=== PATIENT | female | born 1950 | race Caucasian/White ===

== ENCOUNTER 2017-08-18 18:03 | Emergency (ER) | payer SELFPAY ==
[~2017-08-18] VITALS: Ht 154.9 cm; Wt 63.3 kg
[2017-08-18 18:22] VITALS: BP 226/113; PULSE 75; RESP 16; TEMP 97.8; O2SAT 96
[2017-08-18] MEDS ORDERED: SYNT88TA PO (18:38)
[2017-08-18] MEDS ORDERED: LOSA50TA PO (18:38)
[2017-08-18] MEDS ORDERED: BP MED PO (18:38)
[2017-08-18] MEDS ORDERED: hydrALAZINE HCL 20 MG/ML VIAL IV PUSH ONE (18:45)
[2017-08-18 18:54] LABS: AUTOMATED NEUTROPHIL # 4.5 TH/MM3 (1.8-7.7); BASOPHIL % 0.5 % (0.0-2.0); EOSINOPHIL # 0.1 TH/MM3 (0-0.4); EOSINOPHIL % 1.1 % (0.0-4.0); HEMATOCRIT 44.2 % (35.0-46.0); HEMO FLAGS DIFF FINAL; LYMPH % 26.9 % (9.0-44.0); LYMPHOCYTE # 1.8 TH/MM3 (1.0-4.8); MEAN CELL VOLUME 85.6 FL (80.0-100.0); MEAN CORPUSCULAR HEMOGLOBIN 29.2 PG (27.0-34.0); MEAN CORPUSCULAR HGB CONC 34.1 % (32.0-36.0); MONO % 4.9 % (0.0-8.0); NEUT % 66.6 % (16.0-70.0); PLATELET COUNT 223 TH/MM3 (150-450); RED BLOOD COUNT 5.16 MIL/MM3 (4.00-5.30); RED CELL DISTRIBUTION WIDTH 11.9 % (11.6-17.2); WHITE BLOOD COUNT 6.7 TH/MM3 (4.0-11.0)
[2017-08-18 19:04] LABS: POTASSIUM 3.7 MEQ/L (3.5-5.1)
[2017-08-18 19:07] LABS: BICARBONATE 25.8 MEQ/L (21.0-32.0)
[2017-08-18 19:08] LABS: INTERNATIONAL NORMALIZED RATIO 0.9 RATIO; PROTHROMBIN TIME - PATIENT 10.3 SEC (9.8-11.6)
[2017-08-18 19:24] VITALS: BP 234/110; PULSE 103; RESP 22; O2SAT 99
--- NOTE | 2017-08-18 19:43 | PD ---
HPI Chief Complaint: Eye Problems/Injury Time Seen by Provider: 18:37 Travel History International Travel<30 days: No Contact w/Intl Traveler<30days: No Traveled to known affect area: No History of Present Illness HPI 67yo F with PMH of HTN here with c/o right sided eye pain and pain above the eye for 1 week. +Blurry vision in right eye. Denies any trauma, fever, chest pain, sob, n/v, abdominal pain, focal weakness or numbness. PFSH Past Medical History Diminished Hearing: No Hypertension: Yes Thyroid Disease: Yes Tetanus Vaccination: < 5 Years ?: Not Tubal Ligation: Yes Past Surgical History Hysterectomy: No Tonsillectomy: Yes Social History Alcohol Use: No Tobacco Use: Yes (SOC) Substance Use: No Allergies-Medications (Allergen,Severity, Reaction): Coded Allergies: No Known Allergies (Unverified , 08/18/17) Reported Meds & Prescriptions Reported Meds & Active Scripts Active Tylenol (Acetaminophen) 325 Mg Tab 325 Mg PO Q4H PRN Reported Losartan (Losartan Potassium) 50 Mg Tab 50 Mg PO DAILY Synthroid (Levothyroxine Sodium) 88 Mcg Tab 88 Mcg PO DAILY Review of Systems Except as stated in HPI: all other systems reviewed are Neg Physical Exam Narrative GENERAL: 67yo F in mild distress. SKIN: Focused skin assessment warm/dry. HEAD: Atraumatic. Normocephalic. EYES: Pupils equal and round at 3mm bilaterally. EOMI. Pain with eye movement in right. No erythema or edema. IOP 17 in right eye. ENT: Throat: Clear. NECK: Trachea midline. No JVD. CARDIOVASCULAR: Regular rate and rhythm. No murmur appreciated. RESPIRATORY: No accessory muscle use. Clear to auscultation. Breath sounds equal bilaterally. GASTROINTESTINAL: Abdomen soft, non-tender, nondistended. MUSCULOSKELETAL: No obvious deformities. No clubbing. No cyanosis. No edema. NEUROLOGICAL: Awake and alert. No obvious cranial nerve deficits. Motor grossly within normal limits. Normal speech. PSYCHIATRIC: Appropriate mood and affect; insight and judgment normal. Data Data Last Documented VS Vital Signs Date Time Temp Pulse Resp B/P (MAP) Pulse Ox O2 Delivery O2 Flow Rate FiO2 08/18/17 21:46 70 16 177/82 (113) 100 08/18/17 21:05 Room Air 08/18/17 18:[address] Brain W/O Iv Contrast(Rout) (08/18/17 ) Ct Facial Bones W Iv Contrast (08/18/17 ) Complete Blood Count With Diff (08/18/17 18:43) Basic Metabolic Panel (Bmp) (08/18/17 18:43) Westergren Sedimentation Rate (08/18/17 18:43) Prothrombin Time / Inr (Pt) (08/18/17 18:43) Act Partial Throm Time (Ptt) (08/18/17 18:43) Hydralazine Inj (Apresoline Inj) (08/18/17 18:45) Iohexol 350 Inj (Omnipaque 350 Inj) (08/18/17 19:47) Ketorolac Inj (Toradol Inj) (08/18/17 20:15) Proparacaine 0.5% Opth Soln (Alcaine 0.5 (08/18/17 20:45) Ed Poc Ultrasound (08/18/17 ) Ed Discharge Order (08/18/17 21:08) Labs Laboratory Tests Test 08/18/17 18:43 08/18/17 18:45 Erythrocyte Sedimentation Rate 13 mm/hr White Blood Count 6.7 TH/MM3 Red Blood Count 5.16 MIL/MM3 Hemoglobin 15.1 GM/DL Hematocrit 44.2 % Mean Corpuscular Volume 85.6 FL Mean Corpuscular Hemoglobin 29.2 PG Mean Corpuscular Hemoglobin Concent 34.1 % Red Cell Distribution Width 11.9 % Platelet Count 223 TH/MM3 Mean Platelet Volume 9.3 FL Neutrophils (%) (Auto) 66.6 % Lymphocytes (%) (Auto) 26.9 % Monocytes (%) (Auto) 4.9 % Eosinophils (%) (Auto) 1.1 % Basophils (%) (Auto) 0.5 % Neutrophils # (Auto) 4.5 TH/MM3 Lymphocytes # (Auto) 1.8 TH/MM3 Monocytes # (Auto) 0.3 TH/MM3 Eosinophils # (Auto) 0.1 TH/MM3 Basophils # (Auto) 0.0 TH/MM3 CBC Comment DIFF FINAL Differential Comment Prothrombin Time 10.3 SEC Prothromb Time International Ratio 0.9 RATIO Activated Partial Thromboplast Time 27.0 SEC Blood Urea Nitrogen 17 MG/DL Creatinine 0.85 MG/DL Random Glucose 103 MG/DL Calcium Level 9.1 MG/DL Sodium Level 139 MEQ/L Potassium Level 3.7 MEQ/L Chloride Level 107 MEQ/L Carbon Dioxide Level 25.8 MEQ/L Anion Gap 6 MEQ/L Estimat Glomerular Filtration Rate 66 ML/MIN [facility] Medical Decision Making Medical Screen Exam Complete: Yes Emergency Medical Condition: Yes Differential Diagnosis Sinus headache vs. hypertensive emergency vs. temporal arteritis vs. glucoma Narrative Course 67yo F with headache around right eye frontal and maxillary sinus region for 1 week. No signs of infection on exam but pt has pain with eye movement so ordered CT facial with contrast. Labs reviewed, no leukocytosis. ESR 13 so no temporal arteritis. BMP unremarkable. CT brain negative. Pt has no focal weakness or numbness. States vision is blurred and there is no region that is black or has no vision. CT facial negative. Pt given hydralazine and BP improved from 226/113 to 192/101. Creatinine is normal. Toradol given for headache with improvement of pain. Eye pain also improved after proparacaine. Visual acuity left eye 20/25, right eye 20/50, bilateral 20/25. Beside ocular ultrasounds of right eye unremarkable. Pt is to follow up with base filler operator and PMD. Return precautions given. Procedures Procedure Narrative Emergency department ocular ultrasound was performed with patient consent. Right eye: Linear probe was used in the transverse and sagittal views of the orbit without evidence of retinal detachment, vitreous hemorrhage, or lens dislocation. Optic nerve is not enlarged. Diagnosis Primary Impression: Headache Qualified Codes: R51 - Headache Additional Impressions: Elevated blood pressure reading Blurred vision, right eye Referrals: Maya Eddy MD call for appointment Blurred vision in right eye for 1 week. Patient Instructions: General Instructions Departure Forms: Tests/Procedures Additional Instructions: Please follow up with base filler operator in 1-2 days. Please follow up with your primary care physician regarding uncontrolled blood pressure. Please return to the ED if symptoms worsen. Med/Other Pt SpecificInfo: Prescription(s) given Scripts Acetaminophen (Tylenol) 325 Mg Tab 325 MG PO Q4H Y for PAIN SCALE 1 TO 4, #20 TAB 0 Refills Prov: Consuelo Lindquist 08/18/17 Disposition: 01 DISCHARGE HOME Condition: Stable Consuelo Lindquist DO Aug 18, 2017 19:43
[2017-08-18] MEDS ORDERED: IOHEXOL 350 MG/ML 10 ML VIAL (for RAD DIAG) IVCONTRAST ONE (19:47)
--- NOTE | 2017-08-18 19:56 | RADRPT ---
EXAM DATE/TIME: 08/18/2017 19:27 [facility] COMPARISON: No previous studies available for comparison. INDICATIONS : Cephalgia. RADIATION DOSE: 57.36 CTDIvol (mGy) MEDICAL HISTORY : Hypertension. SURGICAL HISTORY : None. ENCOUNTER: Initial ACUITY: 1 day PAIN SCALE: 6/10 LOCATION: Bilateral cranial TECHNIQUE: Multiple contiguous axial images were obtained of the head. Using automated exposure control and adj ustment of the mA and/or kV according to patient size, radiation dose was kept as low as reasonably a chievable to obtain optimal diagnostic quality images. DICOM format image data is available electro nically for review and comparison. FINDINGS: CEREBRUM: The ventricles are normal for age. No evidence of midline shift, mass lesion, hemorrhage or acute in farction. No extra-axial fluid collections are seen. POSTERIOR FOSSA: The cerebellum and brainstem are intact. The 4th ventricle is midline. The cerebellopontine angle i s unremarkable. EXTRACRANIAL: The visualized portion of the orbits is intact. SKULL: The calvaria is intact. No evidence of skull fracture. CONCLUSION: No acute disease. Jose Guadalupe Jr., MD on August 18, 2017 at 19:54 Board Certified Radiologist. This report was verified electronically.
--- NOTE | 2017-08-18 19:56 | RADRPT ---
EXAM DATE/TIME: 08/18/2017 19:27 [facility] COMPARISON: No previous studies available for comparison. INDICATIONS : Pain with right eye movement. Evaluate for cellulitis. IV CONTRAST: 75 cc Omnipaque 350 (iohexol) IV RADIATION DOSE: 34.84 CTDIvol (mGy) MEDICAL HISTORY : Hypertension. SURGICAL HISTORY : None. ENCOUNTER: Initial ACUITY: 1 day PAIN SCALE: 6/10 LOCATION: Right orbit TECHNIQUE: Volumetric scanning of the facial bones was performed. Using automated exposure control and adjustme nt of the mA and/or kV according to patient size, radiation dose was kept as low as reasonably achiev able to obtain optimal diagnostic quality images. DICOM format image data is available electronicall y for review and comparison. FINDINGS: ORBITS: The orbital and infraorbital osseous structures are intact. The retroconal structures have a normal configuration. No radiopaque foreign bodies are seen. NASAL BONE: The nasal bone and maxillary spine are intact ZYGOMATIC ARCHES: Symmetric without evidence of fracture. SINUSES: The maxillary, ethmoid and frontal sinuses are intact. No air-fluid levels seen. NASAL CAVITY: The nasal septum is intact and midline. The lacrimal ducts are intact. SOFT TISSUES: No radiopaque foreign bodies seen. No soft-tissue swelling is seen. INTRACRANIAL: No intracranial air seen. CRIBIFORM PLATE: Grossly intact. CONCLUSION: Normal examination. Jose Guadalupe Jr., MD on August 18, 2017 at 19:52 Board Certified Radiologist. This report was verified electronically.
[2017-08-18] MEDS ORDERED: KETOROLAC TROMETHAMINE 30 MG/ML (IVP) VIAL IV PUSH ONE (20:15)
[2017-08-18 20:25] VITALS: BP 192/101; PULSE 87; RESP 16; O2SAT 99
[2017-08-18] MEDS ORDERED: PROPARACAINE HCL 0.5% OPHT SOLN 15 ML BTL EACH EYE ONE (20:45)
[2017-08-18 21:05] VITALS: BP 189/92; PULSE 88; RESP 16; O2SAT 100
[2017-08-18] MEDS ORDERED: TYLE325T PO (21:07)
[2017-08-18 21:46] VITALS: BP 177/82
== END 2017-08-18 21:49 | disposition home or self-care (01) ==
LOC: PHED 18:03
DX: R51 Headache (principal); H53.8 Other visual disturbances; E07.9 Disorder of thyroid, unspecified; I10 Essential (primary) hypertension; Z72.0 Tobacco use; Z79.899 Other long term (current) drug therapy
CPT/HCPCS: 70450; 70487; 80048; 85025; 85610; 85652; 85730; 96374; 99285; J0360; J1885; Q9967